=== PATIENT | male | born 1935 | race Caucasian/White ===

== ENCOUNTER 2016-11-10 07:54 | Inpatient (IN) | payer MEDICARE, OTHER ==
[~2016-11-10 07:54] MED LIST: ADULT LOW DOSE81 M1 PO; ALDACTONE25 M1 PO; GLIPIZIDE XL10 M1 PO; GLUCOPHAGE1000 M1 PO; ISOSORBIDE MONO60 M3 PO; JANUVIA100 M1 PO; NEXIUM40 M1 PO; NITROGLYCERIN0.4 M2 PO; PLAVIX75 M1 PO; PROSCAR5 M1 PO; SIMVASTATIN40 M1 PO; TOPROL XL50 M1 PO; UROXATRAL10 M1 PO; ZESTRIL2.5 M3 PO
[2016-11-10 08:14] LABS: BASO % 0.2 % (0-2); EOSINOPHIL ABSOLUTE COUNT 0.3 tho/cmm (0.0-0.7); HGB-HEMOGLOBIN 11.6 gm/dl (13.5-17.0); IMMATURE GRANULOCYTES ABSOLUTE 0.02 tho/cmm (0-0.03); IMMATURE GRANULOCYTES PERCENT 0.2 % (0-0.3); LYMPH % 12.2 % (20-45); LYMPH ABSOLUTE COUNT 1.1 tho/cmm (0.8-4.5); MCH (MEAN CORPUSCULAR HGB) 33.6 pg (28.0-32.0); MCHC MEAN CORPUSCULAR HGB CONC 36.3 % (32.0-36.0); MCV (MEAN CELL VOLUME) 92.8 fl (82.0-96.0); MEAN PLATELET VOLUME 11.9 cmc (9.4-12.4); MONO % 6.6 % (0-12); MONOCYTE ABSOLUTE COUNT 0.6 tho/cmm (0.0-1.2); NEUTROPHIL ABSOLUTE COUNT 6.8 tho/cmm (1.6-8.0); NEUTROPHIL-AUTOMATED 6.8 tho/cmm (1.6-8.0); NEUTROPHILS % 77.8 % (40-80); PLATELET COUNT 170 tho/cmm (150-450); RED BLOOD COUNT 3.45 mil/cmm (4.40-5.70); RED CELL DISTRIBUTION WIDTH 18.3 % (12.4-16.4); WHITE BLOOD COUNT 8.7 tho/cmm (4.0-10.0)
[2016-11-10 08:15] LABS: INR 1.2 INR (0.9-1.1); PROTHROMBIN TIME 14.1 SECONDS (9.0-13.6)
[2016-11-10 08:31] LABS: ESR-ERYTHROCYTE SED RATE 56 mm/hr (0-20)
[2016-11-10 08:32] LABS: ALBUMIN 3.3 g/dl (3.5-5.0); ALKALINE PHOSPHATASE 49 U/L (33-138); ALT/SGPT 17 U/L (12-78); ANION GAP 18 mmol/L (0-20); AST/SGOT 16 U/L (10-40); BILIRUBIN,TOTAL 0.6 mg/dl (0.0-1.5); BLOOD UREA NITROGEN 35 mg/dl (6-24); CALCIUM 8.3 mg/dl (8.5-10.5); CARBON DIOXIDE-VENOUS 23 mmol/L (22-32); CHLORIDE 106 mmol/l (96-110); GLUCOSE 189 mg/dL (70-110); MAGNESIUM 1.3 mg/dl (1.8-2.6); POTASSIUM 4.1 mmol/L (3.7-5.1); SODIUM 143 mmol/L (135-145); eGFR VALUE FOR BLACK 55 mL/Min
[2016-11-10] MEDS ORDERED: CULTURELLE1 EAC1 PO (09:01)
[2016-11-10] MEDS ORDERED: BISOPROLOL FUMAR5 M1 PO (09:01)
[2016-11-10] MEDS ORDERED: LIPITOR40 M1 PO (09:02)
[2016-11-10] MEDS ORDERED: PROAIR HFA8.5 GM INH (09:03)
[2016-11-10] MEDS ORDERED: DEMADEX20 M1 PO (09:04)
[2016-11-10] MEDS ORDERED: ZOLOFT25 M1 PO (09:05)
[2016-11-11 04:41] LABS: BASO % 0.3 % (0-2); EOS % 0.4 % (0-7); HCT-HEMATOCRIT 35.2 % (36.0-53.5); HGB-HEMOGLOBIN 11.4 gm/dl (13.5-17.0); IMMATURE GRANULOCYTES ABSOLUTE 0.01 tho/cmm (0-0.03); IMMATURE GRANULOCYTES PERCENT 0.1 % (0-0.3); LYMPH % 7.9 % (20-45); LYMPH ABSOLUTE COUNT 0.6 tho/cmm (0.8-4.5); MEAN PLATELET VOLUME 11.6 cmc (9.4-12.4); MONO % 8.7 % (0-12); MONOCYTE ABSOLUTE COUNT 0.6 tho/cmm (0.0-1.2); NEUTROPHILS % 82.6 % (40-80); PLATELET COUNT 211 tho/cmm (150-450); RED BLOOD COUNT 4.07 mil/cmm (4.40-5.70); RED CELL DISTRIBUTION WIDTH 15.1 % (12.4-16.4); WHITE BLOOD COUNT 7.2 tho/cmm (4.0-10.0)
[2016-11-11 04:51] LABS: MCHC MEAN CORPUSCULAR HGB CONC 32.4 % (32.0-36.0); MCV (MEAN CELL VOLUME) 86.5 fl (82.0-96.0)
[2016-11-11 04:52] LABS: ANION GAP 18 mmol/L (0-20); BLOOD UREA NITROGEN 27 mg/dl (6-24); CALCIUM 8.4 mg/dl (8.5-10.5); CARBON DIOXIDE-VENOUS 20 mmol/L (22-32); CHLORIDE 111 mmol/l (96-110); CHOLESTEROL 104 mg/dl (120-200); CREATININE 1.07 mg/dl (0.60-1.30); GLUCOSE 162 mg/dL (70-110); HDL CHOLESTEROL 50 mg/dl (40-60); LDL CHOLESTEROL 34 mg/dl (0-99); MAGNESIUM 2.1 mg/dl (1.8-2.6); POTASSIUM 3.9 mmol/L (3.7-5.1); SODIUM 145 mmol/L (135-145); TRIGLYCERIDES 103 mg/dl (<149); VLDL 21 mg/dl (0-30); eGFR VALUE FOR BLACK 76 mL/Min
[2016-11-11] MEDS ORDERED: B-12500 MC1 PO (15:34)
[2016-11-12 05:36] LABS: ANION GAP 14 mmol/L (0-20); BLOOD UREA NITROGEN 27 mg/dl (6-24); CALCIUM 8.2 mg/dl (8.5-10.5); CARBON DIOXIDE-VENOUS 23 mmol/L (22-32); CHLORIDE 114 mmol/l (96-110); CREATININE 1.06 mg/dl (0.60-1.30); GLUCOSE 193 mg/dL (70-110); POTASSIUM 3.9 mmol/L (3.7-5.1); SODIUM 147 mmol/L (135-145); eGFR VALUE FOR BLACK 76 mL/Min
[2016-11-13 05:22] LABS: HGB-HEMOGLOBIN 10.7 gm/dl (13.5-17.0); PLATELET COUNT 193 tho/cmm (150-450)
[2016-11-13 07:20] LABS: ANION GAP 15 mmol/L (0-20); BLOOD UREA NITROGEN 22 mg/dl (6-24); CALCIUM 8.7 mg/dl (8.5-10.5); CARBON DIOXIDE-VENOUS 23 mmol/L (22-32); CHLORIDE 113 mmol/l (96-110); CREATININE 1.01 mg/dl (0.60-1.30); GLUCOSE 203 mg/dL (70-110); POTASSIUM 3.7 mmol/L (3.7-5.1); SODIUM 147 mmol/L (135-145); eGFR VALUE FOR BLACK 81 mL/Min
[2016-11-13] MEDS ORDERED: TYLENOL325 M2 PO (12:53)
[2016-11-13] MEDS ORDERED: ASPIRIN325 M3 PO (12:54)
[2016-11-13] MEDS ORDERED: PRINIVIL5 M1 PO (12:55)
[2016-11-13] MEDS ORDERED: COREG3.125 M1 PO (12:55)
== END 2016-11-13 14:10 | DRG 65 ==
LOC: EDMED 07:54 → EMR2 09:38 → 5EB 10:45
PROVIDERS: Emergency Medicine; Internal Medicine; ADMIT Family Medicine
DX: I63.9 Cerebral infarction, unspecified (principal); G81.91 Hemiplegia, unspecified affecting right dominant side; N17.9 Acute kidney failure, unspecified; E87.0 Hyperosmolality and hypernatremia; E11.65 Type 2 diabetes mellitus with hyperglycemia; R13.10 Dysphagia, unspecified; I25.10 Atherosclerotic heart disease of native coronary artery without angina pectoris; I25.5 Ischemic cardiomyopathy; K22.70 Barrett's esophagus without dysplasia; I10 Essential (primary) hypertension; E78.5 Hyperlipidemia, unspecified; Z86.718 Personal history of other venous thrombosis and embolism; K21.9 Gastro-esophageal reflux disease without esophagitis; I34.0 Nonrheumatic mitral (valve) insufficiency; I35.2 Nonrheumatic aortic (valve) stenosis with insufficiency; N40.0 Benign prostatic hyperplasia without lower urinary tract symptoms; M19.90 Unspecified osteoarthritis, unspecified site; N52.9 Male erectile dysfunction, unspecified; Z88.2 Allergy status to sulfonamides; R29.810 Facial weakness; Z79.84 Long term (current) use of oral hypoglycemic drugs; R47.01 Aphasia; Z95.1 Presence of aortocoronary bypass graft; Z79.02 Long term (current) use of antithrombotics/antiplatelets; Z79.82 Long term (current) use of aspirin; I49.3 Ventricular premature depolarization; R47.1 Dysarthria and anarthria; F41.9 Anxiety disorder, unspecified; Z95.0 Presence of cardiac pacemaker
CPT/HCPCS: G8996-GN-CK; G8997-GN-CJ; G8998-GN-CK; G9162-GN-CL; G9163-GN-CL; G9164-GN-CL; J1650; J1815; J3475; J7030